=== PATIENT | female | born 1970 | race Two or more races ===

== ENCOUNTER 2024-10-17 08:03 | Emergency (ER) | payer BC, OTHER ==
[~2024-10-17] VITALS: Ht 160 cm; Wt 70.1 kg
--- NOTE | 2024-10-17 08:46 | ED.PDOC ---
History of Present Illness HPI Comments 54 year old female presents to the ED with a chief complaint of LT hip pain onset 1 week. Patient states she had a spinal cord stimulator placed at [place], for the past week has been experiencing Lt hip pain and back pain. Patient noticed area around stimulator is swollen, pain worsens with walking. Denies any PMHx as well as nausea, vomiting, diarrhea, fall, injury, chest pain, shortness of breath. No other symptoms or modifying factors present at this time. 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 TECHNICIAN History Family History Family History: Reviewed,noncontributory to illness, No family hx of Cancer, No family hx of DM, No family hx of Heart que, No family hx of HTN, No family hx ofKidney que, No family hx of Liver que, No family hx of Lung que, No family hx of Stroke Social History Smoker: Non-Smoker Alcohol: Denies ETOH Use Drugs: Denies Drug Use Lives In: Home Constitutional: denies: chills, diaphoresis, fatigue, fever, malaise, sweats, weakness, others EENTM: denies: blurred vision, double vision, ear bleeding, ear discharge, ear drainage, ear pain, ear ringing, eye pain, eye redness, hearing loss, mouth pain, mouth swelling, nasal discharge, nose bleeding, nose congestion, nose pain, photophobia, tearing, throat pain, throat swelling, voice changes, others Respiratory: denies: cough, hemoptysis, orthopnea, SOB at rest, shortness of breath, SOB with excertion, stridor, wheezing, others Cardiovascular: denies: chest pain, dizzy spells, diaphoresis, Dyspnea on exertion, edema, irregular heart beat, left arm pain, lightheadedness, palpit ations, PND, syncope, others Gastrointestinal: denies: abdomen distended, abdominal pain, blood streaked b owels, constipated, diarrhea, dysphagia, difficulty swallowing, hematemesis, melena, nausea, poor appetite, poor fluid intake, rectal bleeding, rectal pain, vomiting, others Genitourinary: denies: abnormal vagina bleeding, burning, dyspareunia, dysuria, flank pain, frequency, hematuria, incontinence, pain, , vagina discharge, urgency, others Neurological: denies: dizziness, fainting, headache, left sided numbness, left sided weakness, numbness, paresthesia, pre-existing deficit, right sided numbness, right sided weakness, seizure, speech problems, tingling, tremors, weakness, others Musculoskeletal: reports: back pain, others (LT hip pain); denies: gout, joint pain, joint swelling, muscle pain, muscle stiffness, neck pain Integumetry: denies: bruises, change in color, change in hair/nails, dryness, laceration, lesions, lumps, rash, wounds, others Allergic/Immunocompromised: denies: Difficulty Healing, Frequent Infections, Hives, Itching, others Hematologic/Lymphatic: denies: anemia, blood clots, easy bleeding, easy bruising, swollen glands, others Endocrine: denies: excessive hunger, excessive sweating, excessive thirst, excessive urination, flushing, intolerance to cold, intolerance to heat, unexplained weight gain, unexplained weight loss, others Psychiatric: denies: anxiety, bipolar disorder, depression, hopeless, panic disorder, schizophrenia, sleepless, suicidal, others All Other Systems: Reviewed and Negative Physical Exam General Appearance: Moderate Distress, Normal HEENT: Normal ENT Inspection, Pharynx Normal, TMs Normal Neck: Full Range of Motion, Non-Tender, Normal, Normal Inspection Respiratory: Chest Non-Tender, Lungs Clear, No Accessory Muscle Use, No Respir atory Distress, Normal Breath Sounds Cardiovascular: No Edema, No JVD, No Murmur, No Gallop, Normal Peripheral Pulses, Regular Rate/Rhythm Breast Exam: Deferred Gastrointestinal: No Organomegaly, Non Tender, No Pulsatile Mass, Normal Bowel Sounds, Soft Genitalia: Deferred Pelvic: Deferred Rectal: Deferred Extremities: No calf tenderness, Normal capillary refill, Normal inspection, Normal range of motion, Non-tender, No pedal edema Musculoskeletal : Apperance: Normal Neurologic: 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 Was a procedure done?: No Differential Dx Considerations may include: Chronic pain syndrome X-Ray, Labs, Meds, VS Vital Signs Date Time Temp Pulse Resp B/P (MAP) Pulse Ox O2 Delivery O2 Flow Rate FiO2 10/17/24 09:07 98.0 71 16 139/81 (100) 96 98.0 10/17/24 08:19 98.2 94 14 144/76 (98) 97 98.2 10/17/24 08:19 Room Air 0 Patient alert. Complaining of back pain. Vitals stable. Answering questions. Ambulating. She does have chronic history. CT scan of the lumbar spine does not show any acute changes. Made an appointment for her for primary care physician. Outpatient MRI. Reviewed her visit. No neurological symptoms. No radiculopathy. Explained to the patient. Was told to follow up with her primary care physician. Was told to come back if there is any problem. Time of 1ST Reevaluation: 09:00 Reevaluation 1ST: Unchanged Patient Education/Counseling: Diagnosis, Treatment, Prognosis Family Education/Counseling: No Family Present Additional Information The following tests were ordered, and results were reviewed by me: CT LS SPINE WO CONTRAST I reviewed and agreed with the following test results read by other providers: CT LS SPINE WO CONTRAST I discussed treatment and results with medical personnel and: patient Comprehensive systems review obtained and negative except for what is stated in the HPI. Departure 1 Departure Time of Disposition: 09:34 Impression: Primary Impression: Degenerative disc disease Qualified Codes: M51.369 - Other intervertebral disc degeneration, lumbar region without mention of lumbar back pain or lower extremity pain Additional Impressions: Musculoskeletal pain Lumbar sprain Qualified Codes: S33.5XXS - Sprain of ligaments of lumbar spine, sequela Disposition: HOME / SELF CARE / HOMELESS Condition: Good Discharged With: Self Critical Care Note Critical Care Time?: No Stability Stability form required: No Heart Score Heart Score: Heart Score Response (Comments) Value History N/A 0 EKG N/A 0 Age N/A 0 Risk Factors N/A 0 Troponin N/A 0 Total 0 I personally scribed for EVON BISHOP MD ([email or web address]) on 10/17/24 at 08:46. Electronically submitted by Yolanda Alexandra ([email or web address]). I personally scribed for EVON BISHOP MD ([email or web address]) on 10/17/24 at 08:54. Electronically submitted by Yolanda Alexandra ([email or web address]). EVON BISHOP MD October 17, 2024 08:46
[2024-10-17 09:07] VITALS: BP 139/81; PULSE 71; RESP 16; TEMP 98; O2SAT 96
--- NOTE | 2024-10-17 09:25 | DVH ---
CLINICAL INFORMATION: Low-back pain. TECHNIQUE: Axial CT images of the lumbar spine were obtained without IV contrast. Coronal and sagitt al reformatted images were obtained, reviewed, and stored. One or more of the following dose reducti on techniques were used: Automated exposure control. Adjustment of mA and/or kV according to patient size. CTDIvol = 24.65 mGy DLP = 921.36 mGy-cm COMPARISON: None FINDINGS: Vertebral body alignment is within normal limits. Vertebral body heights are maintained. Posterior el ements are intact. No acute fracture. Paraspinal soft tissues are unremarkable. Lumbar disc levels: L1-L2: No significant disc/facet abnormality. No significant spinal canal or neural foraminal stenosi s. L2-L3: No significant disc/facet abnormality. No significant spinal canal or neural foraminal stenosi s. L3-L4: Mild diffuse disc bulge. No significant spinal canal stenosis. Facet hypertrophy with mild domingo ateral neural foraminal stenoses. L4-L5: Mild disc bulge. No significant spinal canal stenosis. Facet hypertrophy with moderate bilater al neural foraminal stenoses. L5-S1: No significant disc/facet abnormality. No significant spinal canal or neural foraminal stenosi s. IMPRESSION: 1. No evidence of acute fracture or spondylolisthesis. 2. Degenerative disc disease and facet disease in the lumbar spine as described above. Correlate with clinical findings. If clinically indicated, MRI could be obtained to further characterize.
== END 2024-10-17 09:42 | disposition home or self-care (01) ==
LOC: ER 08:03
DX: S33.5XXA Sprain of ligaments of lumbar spine, initial encounter (principal); M79.18 Myalgia, other site; Z88.5 Allergy status to narcotic agent; X58.XXXA Exposure to other specified factors, initial encounter; Y93.89 Activity, other specified; Y92.89 Other specified places as the place of occurrence of the external cause; Y99.8 Other external cause status
CPT/HCPCS: 72131

== ENCOUNTER 2024-11-09 06:15 | Outpatient (CLI) | payer BC ==
[2024-11-09 06:29] LABS: Urine Bacteria None Seen /hpf (None Seen)
[2024-11-09 06:43] LABS: Urine Blood 1+ /uL (Negative); Urine Clarity Clear (Clear); Urine Color Yellow (Yellow); Urine Mucus FEW (None Seen); Urine Protein, UAD Negative (Negative); Urine Specific Gravity 1.025 (1.001-1.035); Urine Squamous Epithelial Cell FEW /hpf (<5); Urine Urobilinogen Normal (Negative); Urine WBC 2 /HPF (0-5)
[2024-11-09 07:10] LABS: Alanine Aminotransferase 12 U/L (7-40); Alkaline Phosphatase 49 U/L (46-116); Anion Gap 11 (5-15); Aspartate Aminotransferase 13 U/L (13-40); BUN/Creatinine Ratio 19.7 (10.0-20.0); Bilirubin, Total 0.5 mg/dL (0.2-1.0); Blood Urea Nitrogen 14 mg/dL (9-23); Calcium 9.8 mg/dL (8.7-10.4); Carbon Dioxide 26 mmol/L (20-31); Chloride 107 mmol/L (98-107); Glucose 89 mg/dL (74-106); Potassium 3.8 mmol/L (3.5-5.1); Sodium 144 mmol/L (136-145); Total Protein 7.4 g/dL (5.7-8.2)
[2024-11-09 07:17] LABS: Albumin 4.9 g/dL (3.2-4.8)
[2024-11-09 07:33] LABS: Triglycerides 67 mg/dL (< 150)
[2024-11-09 07:34] LABS: LDL Cholesterol 100 mg/dL (< 100)
[2024-11-09 07:36] LABS: Cholesterol 202 mg/dL (< 200); HDL Cholesterol 88 mg/dL (40-59)
== END 2024-11-09 17:00 | disposition home or self-care (01) ==
LOC: LAB 06:15
PROVIDERS: ATTEND Nurse Practitioner Family
DX: I10 Essential (primary) hypertension (principal); Z00.01 Encounter for general adult medical examination with abnormal findings
CPT/HCPCS: 36415; 80053; 80061; 81001; 84443

== ENCOUNTER 2025-01-10 12:53 | Emergency (ER) | payer BC ==
[~2025-01-10] VITALS: Ht 160 cm; Wt 63.1 kg
--- NOTE | 2025-01-10 13:28 | ED.PDOC ---
HPI (NEURO) HPI Comments 54y F who presents to the ED for chief complaint of generalized weakness. Pt states she had sinus headache last night PM and states since 0600 this AM and all day today, she has been having generalized weakness, malaise, body aches, tingling. Pt states she started to get a headache and nausea and came from work to the ED for further evaluation. Pt in the ED, otherwise is alert and oriented x 4 and no noted changes in gait, vision or speech are noted. Pt otherwise denies any recent sick contacts. Pt otherwise denies any other symptoms at this time. Pt has stable vitals in the ED. Chief Complaint: General Weakness Time Seen by MD: 13:21 Reviewed Notes: Medications, Allergies Information Source: Patient Mode of Arrival: Ambulatory Brought in by: self Severity: Moderate Dizziness/Weakness Severity: Does not affect activitie Headache Severity: None Timing: Hours Duration: Since onset Prehospital treatment: None Headache Location: Generalized Weakness Location: Generalized Onset: At rest Circumstances: Spontaneous Symptoms: Weakness History of: None Modifying factors: Nothing Associated Signs and Symptoms: Weakness, Numbness Past Medical History PAST MEDICAL HISTORY: Denies Surgical History: Cholecystectomy Surgical History (Other): spinal stimulation CARDIOVASCULAR RN History: No Pertinent CARDIOVASCULAR RN History Family History Family History: Reviewed,noncontributory to illness, No family hx of Cancer, No family hx of DM, No family hx of Heart que, No family hx of HTN, No family hx ofKidney que, No family hx of Liver que, No family hx of Lung que, No family hx of Stroke Social History Smoker: Non-Smoker Alcohol: Occasionally Drugs: Denies Drug Use Lives In: Home Constitutional: reports: chills, fatigue, weakness; denies: diaphoresis, fever, malaise, sweats, others EENTM: denies: blurred vision, double vision, ear bleeding, ear discharge, ear drainage, ear pain, ear ringing, eye pain, eye redness, hearing loss, mouth pain, mouth swelling, nasal discharge, nose bleeding, nose congestion, nose pain, photophobia, tearing, throat pain, throat swelling, voice changes, others Respiratory: denies: cough, hemoptysis, orthopnea, SOB at rest, shortness of breath, SOB with excertion, stridor, wheezing, others Cardiovascular: denies: chest pain, dizzy spells, diaphoresis, Dyspnea on exertion, edema, irregular heart beat, left arm pain, lightheadedness, palpitations, PND, syncope, others Gastrointestinal: denies: abdomen distended, abdominal pain, blood streaked bowels, constipated, diarrhea, dysphagia, difficulty swallowing, hematemesis, melena, nausea, poor appetite, poor fluid intake, rectal bleeding, rectal pain, vomiting, others Genitourinary: denies: abnormal vagina bleeding, burning, dyspareunia, dysuria, flank pain, frequency, hematuria, incontinence, pain, , vagina discharge, urgency, others Neurological: denies: dizziness, fainting, headache, left sided numbness, left sided weakness, numbness, paresthesia, pre-existing deficit, right sided numbness, right sided weakness, seizure, speech problems, tingling, tremors, weakness, others Musculoskeletal: denies: back pain, gout, joint pain, joint swelling, muscle pain, muscle stiffness, neck pain, others Integumetry: denies: bruises, change in color, change in hair/nails, dryness, laceration, lesions, lumps, rash, wounds, others Allergic/Immunocompromised: denies: Difficulty Healing, Frequent Infections, Hives, Itching, others Hematologic/Lymphatic: denies: anemia, blood clots, easy bleeding, easy bruising, swollen glands, others Endocrine: denies: excessive hunger, excessive sweating, excessive thirst, excessive urination, flushing, intolerance to cold, intolerance to heat, unexplained weight gain, unexplained weight loss, others Psychiatric: denies: anxiety, bipolar disorder, depression, hopeless, panic disorder, schizophrenia, sleepless, suicidal, others All Other Systems: Reviewed and Negative Physical Exam General Appearance: No Apparent Distress, Normal ( ) HEENT: Normal ENT Inspection, Pharynx Normal, TMs Normal Neck: Full Range of Motion, Non-Tender, Normal, Normal Inspection Respiratory: Chest Non-Tender, Lungs Clear, No Accessory Muscle Use, No Respiratory Distress, Normal Breath Sounds Cardiovascular: No Edema, No JVD, No Murmur, No Gallop, Normal Peripheral Pulses, Regular Rate/Rhythm Breast Exam: Deferred Gastrointestinal: No Organomegaly, Non Tender, No Pulsatile Mass, Normal Bowel Sounds, Soft Genitalia: Deferred Pelvic: Deferred Rectal: Deferred Extremities: No calf tenderness, Normal capillary refill, Normal inspection, Normal range of motion, Non-tender, No pedal edema Musculoskeletal : Apperance: Normal Neurologic: 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 Was a procedure done?: No Differential Diagnosis (SZ) Seizure: N/A General Weakness: Anemia, Dehydration, Electrolyte imbalance, Hypoglycemia, Other (UTI,) X-Ray, Labs, Meds, VS Vital Signs Date Time Temp Pulse Resp B/P (MAP) Pulse Ox O2 Delivery O2 Flow Rate FiO2 01/10/25 14:33 Room Air* 0 21 01/10/25 14:32 97.5 64 14 125/66 (85) 99 97.5 01/10/25 12:55 97.6 79 20 121/75 100 97.6 Lab Test 01/10/25 13:27 01/10/25 13:01 Range/Units White Blood Count 7.6 4.4-10.8 10^3/uL Red Blood Count 4.44 4.0-5.20 10^6/uL Hemoglobin 13.3 12.2-16.2 g/dL Hematocrit 39.0 36.0-46.0 % Mean Corpuscular Volume 87.9 80.0-100.0 fL Mean Corpuscular Hemoglobin 30.0 28.0-32.0 pg Mean Corpuscular Hemoglobin Concent 34.1 32.0-36.0 g/dL Red Cell Distribution Width 13.9 11.8-14.3 % Platelet Count 337 140-450 10^3/uL Mean Platelet Volume 8.3 6.9-10.8 fL Neutrophils (%) (Auto) 81.6 H 37.0-80.0 % Lymphocytes (%) (Auto) 14.2 10.0-50.0 % Monocytes (%) (Auto) 3.5 0.0-12.0 % Eosinophils (%) (Auto) 0.3 0.0-7.0 % Basophils (%) (Auto) 0.4 0.0-2.0 % Neutrophils # (Auto) 6.2 1.6-8.6 10 ^3/uL Lymphocytes # (Auto) 1.1 0.4-5.4 10 ^3/uL Monocytes # (Auto) 0.3 0-1.3 10 ^3/uL Eosinophils # (Auto) 0 0-0.8 10 ^3/uL Basophils # (Auto) 0 0-0.2 10 ^3/uL Nucleated Red Blood Cells 0.0 % Sodium Level 143 136-145 mmol/L Potassium Level 3.3 L 3.5-5.1 mmol/L Chloride Level 105 98-107 mmol/L Carbon Dioxide Level 30 20-31 mmol/L Anion Gap 8 5-15 Blood Urea Nitrogen 18 9-23 mg/dL Creatinine 0.66 0.550-1.02 mg/dL Glomerular Filtration Rate Calc 104 >90 mL/min BUN/Creatinine Ratio 27.3 H 10.0-20.0 Serum Glucose 90 74-106 mg/dL Calcium Level 9.7 8.7-10.4 mg/dL Urine Color Light-orange Yellow Urine Clarity Ex.turbid Clear Urine pH 5.5 5.0-9.0 Urine Specific [place] 1.024 1.001-1.035 Urine Protein Negative Negative Urine Ketones Trace Negative Urine Blood 1+ H Negative /uL Urine Nitrite Negative Negative Urine Bilirubin Negative Negative Urine Urobilinogen Normal Negative mg/dL Urine Leukocyte Esterase 3+ Negative /uL Urine RBC 11 0 - 4 /hpf Urine Microscopic WBC 67 H 0-5 /HPF Urine Squamous Epithelial Cells Mod <5 /hpf Urine Bacteria None seen None Seen /hpf Urine Mucus Few None Seen Urine Glucose Normal Normal mg/dL Current Medications Medications (Trade) Dose Ordered Sig/Veronique Route Start Time Stop Time Status Last Admin Sodium Chloride 1,000 ml @ 1,000 mls/hr Q1H ONCE IV 01/10/25 13:30 01/10/25 14:29 DC 01/10/25 14:10 IV Hep-Lock was established The patient was given a 1 L bolus of normal saline The patient's CBC and chemistry panel shows hypokalemia at 3.3 At this time, the patient will be discharged with a prescription of Cipro The patient will return to the emergency department's condition worsens. Time of 1ST Reevaluation: 14:00 Reevaluation 1ST: Unchanged Patient Education/Counseling: Diagnosis, Treatment, Prognosis, Need For Follow Up Family Education/Counseling: No Family Present Departure 1 Departure Time of Disposition: 14:59 Impression: Primary Impression: Viral syndrome Disposition: 01 HOME / SELF CARE / HOMELESS Condition: Fair e-Prescriptions Ondansetron Odt 4MG Tab (ZOFRAN PO) 4 Mg Tb 4 MG PO Q8HP PRN for 6 Days, #18 TAB ODT TAB-DISSOLVE IN MOUTH, THEN SWALLOW Prov: ALIN PARIS MD 01/10/25 Discharged With: Self Critical Care Note Critical Care Time?: No Stability Stability form required: No Heart Score Heart Score: Heart Score Response (Comments) Value History N/A 0 EKG N/A 0 Age N/A 0 Risk Factors N/A 0 Troponin N/A 0 Total 0 I personally scribed for ALIN PARIS MD ([email or web address]) on 01/10/25 at 13:28. Electronically submitted by Mario Heath ([email or web address]). ALIN PARIS MD Jan 10, 2025 13:28
[2025-01-10 14:01] LABS: Hematocrit 39.0 % (36.0-46.0); Hemoglobin 13.3 g/dL (12.2-16.2); Mean Corpuscular Hemoglobin 30.0 pg (28.0-32.0); Mean Corpuscular Volume 87.9 fL (80.0-100.0); Nucleated Red Blood Cells % 0.0 %
[2025-01-10] MEDS: SODIUM CHLORIDE 0.9% 1,000 ML IV ONE (14:10)
[2025-01-10 14:12] LABS: Chloride 105 mmol/L (98-107); Sodium 143 mmol/L (136-145)
[2025-01-10 14:13] LABS: Anion Gap 8 (5-15); Calcium 9.7 mg/dL (8.7-10.4); Carbon Dioxide 30 mmol/L (20-31); Potassium 3.3 mmol/L (3.5-5.1)
[2025-01-10 14:18] LABS: BUN/Creatinine Ratio 27.3 (10.0-20.0); Blood Urea Nitrogen 18 mg/dL (9-23); Glucose 90 mg/dL (74-106)
[2025-01-10 14:32] VITALS: BP 125/66; PULSE 64; RESP 14; TEMP 97.5; O2SAT 99
[2025-01-10 14:52] LABS: Urine Protein, UAD Negative (Negative)
[2025-01-10] MEDS ORDERED: ZOFR4T PO (14:58)
[2025-01-10] MEDS: ONDANSETRON HCL 4 MG/2 ML VIAL IV ONE (15:01)
== END 2025-01-10 15:35 | disposition home or self-care (01) ==
LOC: EEVIPCON 12:53 → ER 12:53
DX: B34.9 Viral infection, unspecified (principal); Z90.49 Acquired absence of other specified parts of digestive tract; Z79.899 Other long term (current) drug therapy
CPT/HCPCS: 36415; 80048; 81001; 82947; 85025; 96361; 96374; 99283; J2405; J7030

== ENCOUNTER 2025-01-15 08:13 | Emergency (ER) | payer BC ==
[~2025-01-15] VITALS: Ht 160 cm; Wt 63.0 kg
[~2025-01-15 08:13] MED LIST: ZOFR4T PO
--- NOTE | 2025-01-15 08:32 | ED.PDOC ---
HPI Comments 54 y/o F, with PMHx of anxiety presents to the ED for CC of chest pain. Patient states, she has been experiencing substernal non-radiating chest pressure since, Thursday (01/10/25). Patient reports, to have been seen at [facility] on (01/10/25) and told to have a UTI however, never received any antibiotics and symptoms have still persisted. Patient denies active chest pain, shortness of breath, palpitations, nausea, vomiting, dysuria, or back pain. No other symptoms or modifying factors present at this time. Chief Complaint: Chest Pain Time Seen by MD: 08:00 Reviewed Notes: Nurses Notes, Medications, Allergies Allergies: Coded Allergies: Codeine (Verified Allergy, Unknown, 10/17/24) Home Meds Active Scripts Ondansetron Odt 4MG Tab (ZOFRAN PO) 4 Mg Tb, 4 MG PO Q8HP PRN for 6 Days, #18 TAB ODT TAB-DISSOLVE IN MOUTH, THEN SWALLOW Prov:ALIN PARIS MD 01/10/25 Information Source: Patient Mode of Arrival: Ambulatory Severity: Moderate Timing: Minutes Duration: Since onset Prehospital treatment: None Location: Substernal Radiation: No Radiation Quality: Pressure Onset: With Light Exertion Cardiac Risk Factors: None PE Risk Factors: None History of: None Modifying Factors: Nothing Associated Signs and Symptoms: None Past Medical History PAST MEDICAL HISTORY: Anxiety Surgical History: Cholecystectomy 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 History: No Pertinent 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 History Family History Family History: Reviewed,noncontributory to illness, No family hx of Cancer, No family hx of DM, No family hx of Heart que, No family hx of HTN, No family hx ofKidney que, No family hx of Liver que, No family hx of Lung que, No family hx of Stroke Social History Smoker: Non-Smoker Alcohol: Occasionally Drugs: Denies Drug Use Lives In: Home Constitutional: denies: chills, diaphoresis, fatigue, fever, malaise, sweats, weakness, others EENTM: denies: blurred vision, double vision, ear bleeding, ear discharge, ear drainage, ear pain, ear ringing, eye pain, eye redness, hearing loss, mouth pain, mouth swelling, nasal discharge, nose bleeding, nose congestion, nose pain, photophobia, tearing, throat pain, throat swelling, voice changes, others Respiratory: denies: cough, hemoptysis, orthopnea, SOB at rest, shortness of breath, SOB with excertion, stridor, wheezing, others Cardiovascular: reports: chest pain; denies: dizzy spells, diaphoresis, Dyspnea on exertion, edema, irregular heart beat, left arm pain, lightheadedness, palpitations, PND, syncope, others Gastrointestinal: denies: abdomen distended, abdominal pain, blood streaked bowels, constipated, diarrhea, dysphagia, difficulty swallowing, hematemesis, melena, nausea, poor appetite, poor fluid intake, rectal bleeding, rectal pain, vomiting, others Genitourinary: denies: abnormal vagina bleeding, burning, dyspareunia, dysuria, flank pain, frequency, hematuria, incontinence, pain, , vagina discharge, urgency, others Neurological: denies: dizziness, fainting, headache, left sided numbness, left sided weakness, numbness, paresthesia, pre-existing deficit, right sided numbness, right sided weakness, seizure, speech problems, tingling, tremors, weakness, others Musculoskeletal: denies: back pain, gout, joint pain, joint swelling, muscle pain, muscle stiffness, neck pain, others Integumetry: denies: bruises, change in color, change in hair/nails, dryness, laceration, lesions, lumps, rash, wounds, others Allergic/Immunocompromised: denies: Difficulty Healing, Frequent Infections, Hives, Itching, others Hematologic/Lymphatic: denies: anemia, blood clots, easy bleeding, easy bruising, swollen glands, others Endocrine: denies: excessive hunger, excessive sweating, excessive thirst, excessive urination, flushing, intolerance to cold, intolerance to heat, unexplained weight gain, unexplained weight loss, others Psychiatric: denies: anxiety, bipolar disorder, depression, hopeless, panic disorder, schizophrenia, sleepless, suicidal, others All Other Systems: Reviewed and Negative Physical Exam General Appearance: Moderate Distress HEENT: Normal ENT Inspection, Pharynx Normal, TMs Normal Neck: Full Range of Motion, Non-Tender, Normal, Normal Inspection Respiratory: Chest Non-Tender, Lungs Clear, No Accessory Muscle Use, No Respiratory Distress, Normal Breath Sounds Cardiovascular: No Edema, No JVD, No Murmur, No Gallop, Normal Peripheral Pulses, Regular Rate/Rhythm Breast Exam: Deferred Gastrointestinal: No Organomegaly, Non Tender, No Pulsatile Mass, Normal Bowel Sounds, Soft Genitalia: Deferred Pelvic: Deferred Rectal: Deferred Extremities: No calf tenderness, Normal capillary refill, Normal inspection, Normal range of motion, Non-tender, No pedal edema Musculoskeletal : Apperance: Normal Neurologic: Alert, coke drawer II-XII nml as Tested, No Motor Deficits, Normal Affect, Normal Mood, No Sensory Deficits Cerebellar Function: Normal Reflexes: Normal Skin: Dry, Normal Color, Warm Peripheral Pulses: 3+ Radial (R), 3+ Radial (L) Lymphatic: No Adenopathy EKG EKG : Pulse Rate (adult): 75 [place]: Normal Cardiac Rhythm: NSR Block: None Hypertrophy: None ST: Normal Was a procedure done? Was a procedure done?: No CP Differential Dx Differential Diagnosis: A-fib, A-Flutter, Angina, Anxiety / Panic Attack, Atrial Dysrhythmia, Electrolyte Disorder Differential Diagnosis: Chest Wall Pain, Costochondritis X-Ray, Labs, Meds, VS Vital Signs Date Time Temp Pulse Resp B/P (MAP) Pulse Ox O2 Delivery O2 Flow Rate FiO2 01/15/25 09:33 60 01/15/25 08:56 98.1 67 15 110/71 (84) 97 98.1 01/15/25 08:33 75 01/15/25 08:28 75 01/15/25 08:27 98.0 70 16 135/76 97 98.0 Lab Test 01/15/25 09:54 01/15/25 08:34 01/15/25 08:32 Range/Units Urine Color Yellow Yellow Urine Clarity Clear Clear Urine pH 5.5 5.0-9.0 Urine Specific [place] 1.026 1.001-1.035 Urine Protein Negative Negative Urine Ketones Negative Negative Urine Blood Trace H Negative /uL Urine Nitrite Negative Negative Urine Bilirubin Negative Negative Urine Urobilinogen Normal Negative mg/dL Urine Leukocyte Esterase Negative Negative /uL Urine Glucose Normal Normal mg/dL Sodium Level 142 136-145 mmol/L Potassium Level 3.6 3.5-5.1 mmol/L Chloride Level 105 98-107 mmol/L Carbon Dioxide Level 25 20-31 mmol/L Anion Gap 12 5-15 Blood Urea Nitrogen 19 9-23 mg/dL Creatinine 0.77 0.550-1.02 mg/dL Glomerular Filtration Rate Calc 91 >90 mL/min BUN/Creatinine Ratio 24.7 H 10.0-20.0 Serum Glucose 85 74-106 mg/dL Calcium Level 9.8 8.7-10.4 mg/dL Troponin I High Sensitivity < 3 L </=34 ng/L White Blood Count 6.0 4.4-10.8 10^3/uL Red Blood Count 4.54 4.0-5.20 10^6/uL Hemoglobin 13.3 12.2-16.2 g/dL Hematocrit 39.8 36.0-46.0 % Mean Corpuscular Volume 87.5 80.0-100.0 fL Mean Corpuscular Hemoglobin 29.3 28.0-32.0 pg Mean Corpuscular Hemoglobin Concent 33.5 32.0-36.0 g/dL Red Cell Distribution Width 14.0 11.8-14.3 % Platelet Count 354 140-450 10^3/uL Mean Platelet Volume 8.5 6.9-10.8 fL Neutrophils (%) (Auto) 56.1 37.0-80.0 % Lymphocytes (%) (Auto) 32.0 10.0-50.0 % Monocytes (%) (Auto) 9.0 0.0-12.0 % Eosinophils (%) (Auto) 2.4 0.0-7.0 % Basophils (%) (Auto) 0.5 0.0-2.0 % Neutrophils # (Auto) 3.4 1.6-8.6 10 ^3/uL Lymphocytes # (Auto) 1.9 0.4-5.4 10 ^3/uL Monocytes # (Auto) 0.5 0-1.3 10 ^3/uL Eosinophils # (Auto) 0.1 0-0.8 10 ^3/uL Basophils # (Auto) 0 0-0.2 10 ^3/uL Nucleated Red Blood Cells 0.2 % Current Medications Medications (Trade) Dose Ordered Sig/Veronique Route Start Time Stop Time Status Last Admin Sodium Chloride 1,000 ml @ 1,000 mls/hr Q1H ONCE IV 01/15/25 08:45 01/15/25 09:44 DC 01/15/25 08:52 Patient alert. Complaining of generalized body pains. Vitals stable. Answering questions. Establish intravenous access. Was given fluids. Reviewed her previous visit. She did have urinary tract infection for which she was never given any antibiotics. Urinalysis within normal limits. WBC within normal limits. Hemoglobin within normal limits. CT of the abdomen reviewed does not show any acute changes. Explained to the patient. Was told to follow up with her primary care physician. Was told to come back if there is any problem. Time of 1ST Reevaluation: 08:30 Reevaluation 1ST: Unchanged Patient Education/Counseling: Diagnosis, Treatment Family Education/Counseling: No Family Present SEPSIS Sepsis Screen Physician Orders Ct Ab Pel Wo Con-No Oral Or Iv (01/15/25 08:44) Vital Signs Date Time Temp Pulse Resp B/P (MAP) Pulse Ox O2 Delivery O2 Flow Rate FiO2 01/15/25 09:33 60 01/15/25 08:56 98.1 67 15 110/71 (84) 97 98.1 01/15/25 08:33 75 01/15/25 08:28 75 01/15/25 08:27 98.0 70 16 135/76 97 98.0 Laboratory Tests Test 01/15/25 08:32 White Blood Count 6.0 10^3/uL (4.4-10.8) Medications Medications Dose Ordered Sig/Veronique Route Start Time Stop Time Status Last Admin Dose Admin Sodium Chloride 1,000 ml @ 1,000 mls/hr Q1H ONCE IV 01/15/25 08:45 01/15/25 09:44 DC 01/15/25 08:52 Departure 1 Departure Time of Disposition: 09:06 Impression: Primary Impression: Musculoskeletal pain Additional Impression: Heat exhaustion Qualified Codes: T67.5XXA - Heat exhaustion, unspecified, initial encounter Disposition: 01 HOME / SELF CARE / HOMELESS Condition: Good Discharged With: Self Critical Care Note Critical Care Time?: No Stability Stability form required: No Heart Score Heart Score: Heart Score Response (Comments) Value History N/A 0 EKG N/A 0 Age N/A 0 Risk Factors N/A 0 Troponin N/A 0 Total 0 I personally scribed for EVON BISHOP MD ([email or web address]) on 01/15/25 at 08:32. Electronically submitted by Yani Griffin ([email or web address]). I personally scribed for EVON BISHOP MD ([email or web address]) on 01/15/25 at 08:33. Electronically submitted by Yani Griffin ([email or web address]). I personally scribed for EVON BISHOP MD ([email or web address]) on 01/15/25 at 09:04. Electronically submitted by Yani Griffin [email or web address]). EVON BISHOP MD Jan 15, 2025 08:32
[2025-01-15] MEDS: SODIUM CHLORIDE 0.9% 1,000 ML IV ONE (08:52)
[2025-01-15 08:56] VITALS: BP 110/71; RESP 15; TEMP 98.1; O2SAT 97
[2025-01-15 09:33] VITALS: PULSE 60
--- NOTE | 2025-01-15 09:35 | ECG ---
[facility] Test Date: 2025-01-15 Test Time: 09:33:56 Pat Name: DORY SHAIKH Department: ED Room: Gender: F Quality Inspector: DAVE : 1970 Requested By: EVON BSIHOP Order Number: [id number] Reading MD: Jonnie Min Measurements Intervals [place] Rate: 60 P: 75 NC: 153 QRS: 78 QRSD: 93 T: 76 QT: 432 QTc: 432 Interpretive Statements Sinus rhythm Nonspecific T abnormalities, lateral leads Electronically Signed On 01-16-2025 18:23:07 PDT by Jonnie Min Please click the below link to view image of tracing.
[2025-01-15 09:44] LABS: Hematocrit 39.8 % (36.0-46.0); Hemoglobin 13.3 g/dL (12.2-16.2); Mean Corpuscular Hemoglobin 29.3 pg (28.0-32.0); Mean Corpuscular Volume 87.5 fL (80.0-100.0); Nucleated Red Blood Cells % 0.2 %
[2025-01-15 09:45] LABS: Chloride 105 mmol/L (98-107); Potassium 3.6 mmol/L (3.5-5.1); Sodium 142 mmol/L (136-145)
[2025-01-15 09:46] LABS: Anion Gap 12 (5-15); Calcium 9.8 mg/dL (8.7-10.4); Carbon Dioxide 25 mmol/L (20-31)
[2025-01-15 09:51] LABS: BUN/Creatinine Ratio 24.7 (10.0-20.0); Blood Urea Nitrogen 19 mg/dL (9-23); Glucose 85 mg/dL (74-106)
[2025-01-15 10:24] LABS: Urine Protein, UAD Negative (Negative)
--- NOTE | 2025-01-15 10:52 | DVH ---
CT CT AB PEL WO CON-NO ORAL OR IV INDICATION: colitis EXAM DATE: 01/15/2025 09:38 AM COMPARISON: None RADIATION DOSE: CTDIvol: 7.72 mGy, DLP: 408.25 mGy*cm PROCEDURE: Helical CT images were obtained of the abdomen and pelvis without IV contrast Sagittal and coronal reconstructions are provided. ORAL CONTRAST: None. ADDITIONAL IMAGES / REFORMATS: None All C T scans at this medical facility are performed using dose modulation techniques as appropriate to a p erformed exam including the following: Automated exposure control was utilized; adjustment of the MA and/or KV according to patient size; and use of iterative reconstruction technique. FINDINGS: LUNG BASE: Normal. LIVER: Normal. GALLBLADDER AND BILIARY TREE: Key clips. No intra- or extrahepatic biliary ductal dilation. PANCREAS: Normal. SPLEEN: Normal. BOWEL: Normal. Normal appendix. ADRENALS: Normal. KIDNEYS AND URETER: Normal. BLADDER: Normal. REPRODUCTIVE ORGANS: Normal. LYMPH NODES:No lymphadenopathy. PERITONEUM: No ascites or free air. No other fluid collection. VESSELS: Scattered atherosclerotic calcifications are noted. RETROPERITONEUM: Normal. ABDOMINAL WALL: Normal. BONES: Scattered osseous degenerative changes are noted. IMPRESSION: No acute intraabdominal abnormality.
--- NOTE | 2025-01-16 14:36 | ECG ---
[facility] Test Date: 2025-01-15 Test Time: 08:21:23 Pat Name: DORY SHAIKH Department: ED Room: Gender: F Machine Bender: katherine : 1970 Requested By: EVON BISHOP Order Number: [id number] Reading MD: Jonnie Min Measurements Intervals [place] Rate: 75 P: 71 [place]: 147 QRS: 72 QRSD: 91 T: 80 QT: 392 QTc: 438 Interpretive Statements Sinus rhythm Baseline wander in lead(s) V4,V5 Electronically Signed On 01-16-2025 18:22:56 PDT by Jonnie Min Please click the below link to view image of tracing.
== END 2025-01-15 11:19 | disposition home or self-care (01) ==
LOC: ER 08:13
DX: T67.5XXA Heat exhaustion, unspecified, initial encounter (principal); R07.2 Precordial pain; F41.9 Anxiety disorder, unspecified; Z90.49 Acquired absence of other specified parts of digestive tract; Z79.899 Other long term (current) drug therapy; Z88.5 Allergy status to narcotic agent; X30.XXXA Exposure to excessive natural heat, initial encounter; Y93.89 Activity, other specified; Y92.89 Other specified places as the place of occurrence of the external cause; Y99.8 Other external cause status
CPT/HCPCS: 36415; 74176; 80048; 81003; 84484; 85025; 93005